=== PATIENT | female | born 1975 | race Caucasian/White ===

== ENCOUNTER 2016-09-15 09:24 | Inpatient (IN) | payer SELFPAY ==
[~2016-09-15] VITALS: Ht 157.5 cm; Wt 59.5 kg
[2016-09-15] MEDS ORDERED: KETOROLAC 30 MG/1 ML IVPush ONE (10:00)
[2016-09-15] MEDS ORDERED: SODIUM CHLORIDE FLUSH 10ML SYR IVF ONE (10:00)
[2016-09-15] MEDS ORDERED: SODIUM CHLORIDE 0.9% 1,000ML IV ONE (10:00)
[2016-09-15] MEDS ORDERED: HYDROmorphone 1 MG/ML, 1ML IVPush PRN (10:00)
[2016-09-15] MEDS ORDERED: ONDANSETRON 2MG/ML, 2ML IVPush ONE (10:00)
[2016-09-15] MEDS ORDERED: HYDROmorphone 1 MG/ML, 1ML ONE ×2 (10:14→14:48)
[2016-09-15] MEDS ORDERED: KETOROLAC 30 MG/1 ML ONE (10:15)
[2016-09-15] MEDS ORDERED: ONDANSETRON 2MG/ML, 2ML ONE (10:15)
[2016-09-15 10:41] LABS: BLOOD UREA NITROGEN 15 mg/dL (7-18)
[2016-09-15 11:10] LABS: PATH.CAST-FLAG NOT PRESENT; SPERM-FLAG NOT PRESENT; SRC-FLAG NOT PRESENT; XTAL-FLAG NOT PRESENT; YLC-FLAG NOT PRESENT
[2016-09-15] MEDS ORDERED: PLEASE ENTER HEIGHT MC SCH (12:00)
[2016-09-15] MEDS ORDERED: CEFTRIAXONE PMX 1GM/50ML 50 ML IV ONE (12:00)
[2016-09-15] MEDS ORDERED: CEFTRIAXONE PMX 1GM/50ML 50 ML ONE (12:22)
[2016-09-15] MEDS ORDERED: SODIUM CHLORIDE 0.9%, 500ML IVBOLUS ONE ×2 (13:00→14:00)
[2016-09-15] MEDS ORDERED: FENTANYL PF 100 MCG/2ML ONE (13:09)
[2016-09-15] MEDS ORDERED: FENTANYL PF 100 MCG/2ML IVPush PRN (13:30)
[2016-09-15] MEDS ORDERED: CEFTRIAXONE 1,000 MG in SODIUM CHLORIDE 0.9% 50 ML IV SCH (15:00)
[2016-09-15] MEDS ORDERED: HYDROcodone/APAP 5/325 TABLET ONE (15:06)
[2016-09-15] MEDS: HYDROcodone/APAP 5/325 TABLET PO PRN ×2 (15:12→22:42)
[2016-09-15 15:27] VITALS: BP 87/51
[2016-09-15] MEDS ORDERED: POLYETHYLENE GLYCOL 17 GM PACKET PO PRN (15:30)
[2016-09-15] MEDS ORDERED: BISACODYL 10 MG SUPP PR PRN (15:30)
[2016-09-15] MEDS ORDERED: ONDANSETRON 2MG/ML, 2ML IVPush PRN (15:30)
[2016-09-15] MEDS ORDERED: POTASSIUM CHLORIDE 20 MEQ TAB.ER.PRT PO ONE (15:30)
[2016-09-15] MEDS ORDERED: DOCUSATE 100 MG CAPSULE PO PRN (15:30)
[2016-09-15] MEDS ORDERED: POTASSIUM PHOSPHATE 44 MEQ in SODIUM CHLORIDE 0.9% 500 ML IV STA (16:04)
[2016-09-15] MEDS ORDERED: POTASSIUM PHOSPHATE 88 MEQ in SODIUM CHLORIDE 0.9% 1,000 ML IV ONE (17:00)
[2016-09-15] MEDS: SODIUM CHLORIDE 0.9% 1,000 ML IV SCH (17:03)
[2016-09-15] MEDS: CHOLECALCIFEROL 1,000 UNIT TABLET PO SCH (17:03)
[2016-09-15] MEDS: ENOXAPARIN 40 MG/0.4 ML SQ SCH (17:11)
[2016-09-15 17:43] VITALS: BP 91/57
[2016-09-15] MEDS ORDERED: ERGOCALCIFEROL 50,000 UNIT CAPSULE PO SCH (18:00)
[2016-09-15] MEDS: morphine SULFATE 10 MG/ML, 1ML IVPush PRN ×2 (18:38→23:53)
[2016-09-15 20:41] VITALS: BP 102/61
[2016-09-16 02:29] VITALS: BP 89/55
[2016-09-16] MEDS: SODIUM CHLORIDE 0.9% 1,000 ML IV SCH (05:22)
[2016-09-16 06:24] LABS: ASPARTATE AMINO TRANSFERASE 52 U/L (15-37); BLOOD UREA NITROGEN 8 mg/dL (7-18)
[2016-09-16 07:18] VITALS: BP 101/64
[2016-09-16] MEDS: morphine SULFATE 10 MG/ML, 1ML IVPush PRN (07:52)
[2016-09-16] MEDS: CHOLECALCIFEROL 1,000 UNIT TABLET PO SCH (07:52)
[2016-09-16] MEDS: HYDROcodone/APAP 5/325 TABLET PO PRN ×3 (11:55→22:29)
[2016-09-16] MEDS: CEFTRIAXONE PMX 1GM/50ML 50 ML IV SCH (11:58)
[2016-09-16 12:00] VITALS: BP_SYST 106; BP_SYST 107; BP_SYST 108; BP_DIAS 68; BP_DIAS 71
[2016-09-16] MEDS: ENOXAPARIN 40 MG/0.4 ML SQ SCH (16:51)
[2016-09-16 18:48] VITALS: BP 105/66
[2016-09-16] MEDS ORDERED: OMNIPAQUE 350 MG/ML, 100ML BOTTLE ONE (20:59)
[2016-09-17 00:32] VITALS: BP 92/57
[2016-09-17 05:11] LABS: BLOOD UREA NITROGEN 6 mg/dL (7-18)
[2016-09-17 05:15] LABS: ASPARTATE AMINO TRANSFERASE 102 U/L (15-37)
[2016-09-17 07:09] VITALS: BP 100/64
[2016-09-17] MEDS: HYDROcodone/APAP 5/325 TABLET PO PRN ×2 (09:26→14:07)
[2016-09-17] MEDS: CHOLECALCIFEROL 1,000 UNIT TABLET PO SCH (09:26)
[2016-09-17 10:56] LABS: HEPATITIS C VIRUS ANTIBODY Nonreactive (Nonreactive)
[2016-09-17] MEDS ORDERED: CIPR500T87 PO (11:53)
[2016-09-17] MEDS ORDERED: ERGO500017 PO (11:55)
[2016-09-17] MEDS: CEFTRIAXONE PMX 1GM/50ML 50 ML IV SCH (12:08)
[2016-09-17 12:49] VITALS: BP 113/76
== END 2016-09-17 16:21 | disposition home or self-care (01) | DRG 872 ==
LOC: ED 10:30 → EDIP 14:28 → 3NE 15:18
PROVIDERS: ADMIT Internal Medicine
DX: A41.9 Sepsis, unspecified organism (principal); N10 Acute pyelonephritis; E27.40 Unspecified adrenocortical insufficiency; E86.0 Dehydration; E87.6 Hypokalemia; B96.20 Unspecified Escherichia coli [E. coli] as the cause of diseases classified elsewhere; E55.9 Vitamin D deficiency, unspecified; R55 Syncope and collapse; R74.0 Nonspecific elevation of levels of transaminase and lactic acid dehydrogenase [LDH]; Z87.442 Personal history of urinary calculi
CPT/HCPCS: 36415; 74177; 76705; 76770; 80048; 80053; 80074; 81001; 82040; 82306; 82533; 82977; 83605; 83735; 83970; 84100; 84145; 84443; 84703; 85025; 87040; 87077; 87086; 87186; 96361; 96365; 96375; J0696; J1170; J1650; J1885; J2405; J3010; Q9967; J2270; J7030; J7040